=== PATIENT | female | born 1960 | race Caucasian/White ===

== ENCOUNTER 2017-06-24 18:00 | Outpatient (CLI) | payer BC | END 2017-06-24 18:01 | disposition home or self-care (01) | LOC: SLEEPLAB 18:00 | PROVIDERS: ATTEND Family Medicine | DX: G47.33 Obstructive sleep apnea (adult) (pediatric) (principal); I10 Essential (primary) hypertension | CPT/HCPCS: 95806 ==

== ENCOUNTER 2017-07-20 09:17 | Outpatient (CLI) | payer BC | END 2017-07-20 09:18 | disposition home or self-care (01) | LOC: BICMAMMO 09:17 | PROVIDERS: ATTEND Family Medicine | DX: Z12.31 Encounter for screening mammogram for malignant neoplasm of breast (principal); N64.89 Other specified disorders of breast | CPT/HCPCS: 77063; 77067 ==

== ENCOUNTER 2017-08-17 20:30 | Outpatient (CLI) | payer BC | END 2017-08-17 20:31 | disposition home or self-care (01) | LOC: SLEEPLAB 20:30 | PROVIDERS: ATTEND Family Medicine | DX: G47.33 Obstructive sleep apnea (adult) (pediatric) (principal); I10 Essential (primary) hypertension; Z68.41 Body mass index [BMI] 40.0-44.9, adult | CPT/HCPCS: 95811 ==

== ENCOUNTER 2018-06-23 11:48 | Outpatient (CLI) | payer BC | END 2018-06-23 11:49 | disposition home or self-care (01) | LOC: CTENTCT 11:48 | PROVIDERS: ATTEND Otolaryngology Plastic Surgery within the Head & Neck | DX: J32.9 Chronic sinusitis, unspecified (principal) | CPT/HCPCS: 70486 ==

== ENCOUNTER 2018-08-10 09:43 | Day surgery (SDC) | payer BC ==
[2018-08-09 09:46] VITALS: BMI 40.3
[2018-08-10] MEDS ORDERED: Oxymetazoline HCl 0.05% ( 15 ML ) ONE ×2 (10:24→12:03)
[2018-08-10] MEDS ORDERED: Lidocaine 1% w/Epinephrine 1:100K 20 ML VIAL ONE (12:03)
[2018-08-10] MEDS ORDERED: Fentanyl 100 MCG/2 ML VIAL ONE (12:05)
[2018-08-10] MEDS ORDERED: Midazolam HCl 2 mg/2 ml Vial ONE (12:29)
[2018-08-10] MEDS ORDERED: Labetalol HCl 100 MG/20 ML VIAL ONE (13:26)
[2018-08-10] MEDS ORDERED: Ondansetron PF 4 MG/2 ML Vial ONE (15:02)
[2018-08-10] MEDS ORDERED: Rocuronium Bromide 10 MG/ML (10ML VIAL) ONE (15:02)
[2018-08-10] MEDS ORDERED: Glycopyrrolate 0.2 MG/ML 5 ML SYRINGE ONE (15:02)
[2018-08-10] MEDS ORDERED: PROPOFOL 200 MG/20 ML VIAL ONE (15:02)
[2018-08-10] MEDS ORDERED: Lidocaine 1% PF 5 ML VIAL ONE (15:02)
[2018-08-10] MEDS ORDERED: Dexamethasone 20 MG/5 ML VIAL ONE (15:02)
--- NOTE | 2018-08-11 11:31 | OP ---
DATE OF PROCEDURE: 08/10/2018 PREOPERATIVE DIAGNOSES: 1. Chronic rhinosinusitis. 2. Bilateral inferior turbinate hypertrophy. 3. Nasal obstruction. POSTOPERATIVE DIAGNOSES: 1. Chronic rhinosinusitis. 2. Bilateral inferior turbinate hypertrophy. 3. Nasal obstruction. PROCEDURES PERFORMED: 1. Bilateral endoscopic sinus surgery, total ethmoidectomies. 2. Bilateral endoscopic sinus surgery, maxillary antrostomies. 3. Bilateral endoscopic sinus surgery, sphenoidotomies. 4. Bilateral inferior turbinate submucosal resection. ESTIMATED BLOOD LOSS: 50 mL. COMPLICATIONS: None. ANESTHESIA: GETA. DESCRIPTION OF PROCEDURE: The patient was taken to the operating room, placed supine on the table. General endotracheal anesthesia was obtained by the anesthesia staff. Tube was secured in the left lower lip. The patient was then placed in a beach chair position. Following this, Afrin pledgets were placed in the nasal cavity as the patient was prepped and draped for standard nasal procedures. Following this, 1% lidocaine with 1:100,000 epinephrine was injected into the inferior turbinates, middle turbinates, and lateral nasal wall bilaterally. Following this, medialized using a [place] elevator and the uncinate process was then exposed and was gently widened and was gently anteriorly fractured using the ball-ended probe bilaterally. Following this, the uncinate process was removed using a 40 degree microdebrider blade. Following this, the natural maxillary sinus ostia was identified using a ball-ended probe and was gently widened using the 40 degree microdebrider and forceps. Following this, ethmoidal bulla was identified and was punctured on its medial and inferior aspect and was then removed using the 0-degree microdebrider. Following this, the grand lamella was then identified and was punctured into the posterior ethmoidal cells bilaterally. Working from posterior to anterior, the ethmoidal cells were opened bilaterally using the 0 degree microdebrider, curved microdebrider, and up-biting [place] forceps. Following this, the sphenoid sinuses were approached through the previous ethmoidectomies. The posterior nasal wall in the superior turbinate attachment was identified. Staying just medial and inferior to this, a [place] tip suction was used to create a sphenoidotomy bilaterally. The sphenoidotomy was then widened medially and inferiorly with the microdebrider bilaterally. Following this, the inferior turbinates were punctured on the anterior and inferior aspect and submucosal resection was performed of the anterior and inferior portions of the inferior turbinates bilaterally. The patient tolerated the procedure well. Job ID: [id number]
== END 2018-08-10 15:45 | disposition home or self-care (01) ==
LOC: SDC 09:43
PROVIDERS: ATTEND Otolaryngology Plastic Surgery within the Head & Neck
PROC: 099R8ZZ Drainage of Left Maxillary Sinus, Via Natural or Artificial Opening Endoscopic (ICD-10-PCS; principal; 2018-08-10)
PROC: 099Q8ZZ Drainage of Right Maxillary Sinus, Via Natural or Artificial Opening Endoscopic (ICD-10-PCS; principal; 2018-08-10)
PROC: 09BL8ZZ Excision of Nasal Turbinate, Via Natural or Artificial Opening Endoscopic (ICD-10-PCS; principal; 2018-08-10)
DX: J32.4 Chronic pansinusitis (principal); J34.3 Hypertrophy of nasal turbinates; I10 Essential (primary) hypertension; F41.9 Anxiety disorder, unspecified; Z79.82 Long term (current) use of aspirin; Z79.899 Other long term (current) drug therapy
CPT/HCPCS: 85014; 93005; 93010; J1100; J2001; J2250; J2405; J2704; J3010

== ENCOUNTER 2018-09-13 09:10 | Outpatient (CLI) | payer BC | END 2018-09-13 09:11 | disposition home or self-care (01) | LOC: DTY/OP 09:10 | PROVIDERS: ATTEND Family Medicine | DX: E66.9 Obesity, unspecified (principal); Z68.35 Body mass index [BMI] 35.0-35.9, adult | CPT/HCPCS: 97802 ==

== ENCOUNTER 2021-07-11 10:23 | Outpatient (CLI) | payer BC | END 2021-07-11 10:24 | disposition home or self-care (01) | LOC: SCSRAD 10:23 | PROVIDERS: ATTEND Family Medicine | DX: R05.9 Cough, unspecified (principal) | CPT/HCPCS: 71046 ==

== ENCOUNTER 2021-10-16 09:14 | Outpatient (CLI) | payer BC | END 2021-10-16 09:15 | disposition home or self-care (01) | LOC: BICULT 09:14 | PROVIDERS: ATTEND Nurse Practitioner Family | DX: N95.0 Postmenopausal bleeding (principal); R93.89 Abnormal findings on diagnostic imaging of other specified body structures; C54.1 Malignant neoplasm of endometrium; N84.0 Polyp of corpus uteri | CPT/HCPCS: 76856 ==

== ENCOUNTER 2022-05-20 12:15 | Outpatient (CLI) | payer BC | END 2022-05-20 12:16 | disposition home or self-care (01) | LOC: BICMAMMO 12:15 | PROVIDERS: ATTEND Family Medicine | DX: Z12.31 Encounter for screening mammogram for malignant neoplasm of breast (principal) | CPT/HCPCS: 77063; 77067 ==

== ENCOUNTER 2024-03-21 11:42 | Outpatient (CLI) | payer BC | END 2024-03-21 11:43 | disposition home or self-care (01) | LOC: BICRAD 11:42 | PROVIDERS: ATTEND Family Medicine | DX: M25.512 Pain in left shoulder (principal); R91.8 Other nonspecific abnormal finding of lung field; M47.22 Other spondylosis with radiculopathy, cervical region | CPT/HCPCS: 72040 ==